=== PATIENT | female | born 1935 | race Caucasian/White ===

== ENCOUNTER → 2022-08-26 | Emergency (ER) | payer OTHER ==
[~2022-08-26] VITALS: Ht 160 cm; Wt 104.3 kg
[~2022-08-26] MED LIST: IV NORMAL SALINE 1000 ML BAG IV ONE
[2022-08-26 14:12] LABS: HEMATOCRIT 32.5 % (31.2-41.9); MEAN CORPUSCULAR HEMOGLOBIN 30.6 uug (24.7-32.8); MEAN CORPUSCULAR VOLUME 91.6 fL (75.5-95.3); PLATELET COUNT (AUTO) 217 K/uL (179-408)
[2022-08-26 14:22] LABS: CARBON DIOXIDE 26 mmol/L (21-32); CHLORIDE 104 mmol/L (98-107); CREATININE 1.4 mg/dL (0.6-1.3); GLUCOSE 200 mg/dL (74-106); POTASSIUM 3.9 mmol/L (3.5-5.1); UREA NITROGEN, BLOOD 30 mg/dL (7-18)
[2022-08-26 14:28] LABS: ALANINE AMINOTRANSFERASE 27 U/L (14-59); ALKALINE PHOSPHATASE 122 U/L (50-136); ASPARTATE AMINOTRANSFERASE 13 U/L (15-37); BILIRUBIN,TOTAL 0.2 mg/dL (0.2-1.0); TOTAL PROTEIN, SERUM 6.7 g/dL (6.4-8.2)
--- NOTE | 2022-08-26 14:36 | NUR ---
back from [place]
[2022-08-26 17:20] LABS: CREATININE 1.3 mg/dL (0.6-1.3); POTASSIUM 4.2 mmol/L (3.5-5.1)
== END | disposition home or self-care (01) ==
LOC: ER 13:37
DX: M25.562 Pain in left knee (principal); R51.9 Headache, unspecified; M54.2 Cervicalgia; R07.89 Other chest pain; I25.2 Old myocardial infarction; I10 Essential (primary) hypertension; W18.39XA Other fall on same level, initial encounter; Y93.89 Activity, other specified; Y92.89 Other specified places as the place of occurrence of the external cause; Y99.8 Other external cause status
CPT/HCPCS: 99284; 70450; 96360; 71045; 96361; 80053; 85025; 84484; 36415; 93005; 73564; 70486; 72125; 80048; J7040; A4663